=== PATIENT | female | born 2000 | race Caucasian/White ===

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

== ENCOUNTER 2018-03-09 23:51 | Emergency (ER) | payer OTHER ==
--- NOTE | 2018-03-10 00:12 | ER Report ---
History and Physical Time Seen By MD: 00:10 Hx. of Stated Complaint: PT WAS CITED FOR HAVING WEED IN THE DORMS THIS AFTERNOON. THE [employer]ED [employer] OPERATOR SEARCHED THE DORMS AND ALSO FOUND PRESCRITION XANX. THE XANAX WAS HER MOTHERS THAT SHE GAVE TO THE PT TO HELP WITH ANXIETY/ PANIC ATTACKS. THE PT STATES SHE IS ON PAXIL BUT THAT DOESNT ALWAYS DO THE TRICK SO THE XANAX IS USED A BACK UP. PT IS TEARFUL BECAUSE THE LIQUEFIED NAT[employer] OPERATOR STATED THAT THE MOTHER COULD BE CHARGED WITH A FELONY. PT STATES SHE DOESNT KNOW HOW SHE IS ING TO LIVE WITH THE DEREK AND DEANGELO. PT CUT BILATERAL THIGHS WITH RAZOR BLADE AFTER THIS HAPPENED. HPI/ROS CHIEF COMPLAINT: Suicidal ideation HISTORY OF PRESENT ILLNESS: This is a 18-year-old female. She is here tonight because she had several unfortunate incident happened. She smokes marijuana and was caught with this in the dorms. On investigating her room, please found a pill bottle with Xanax that is prescribed for her mother that she uses as a backup plan for her anxiety. She is on Paxil. The police had informed her that they would be talking to her mother and that it may result in a felony against her mother for giving her daughter a controlled substance in this manner. The patient is hopeless and feels like her life is ruined. She has been having thoughts of suicide but no definite plan but states she is more likely than not to commit suicide tonight if she leaves the hospital. She has never committed suicide or had suicidal ideation before. She does have anxiety and does take Paxil. She also has polycystic ovarian syndrome and is on [place], metformin, and spironolactone for this. She also has hypothyroidism and takes levothyroxine and has had her thyroid levels checked within the last year. Allergies: Coded Allergies: No Known Drug Allergies (Unverified , 03/10/18) Home Meds Reported Medications Thyroid,Pork (NATURE-THROID) 65 Mg Tablet, 65 MG PO BID 03/10/18 Paroxetine Hcl (PAXIL) 20 Mg Tablet, 30 MG PO QDAY, TAB 03/10/18 Spironolactone (SPIRONOLACTONE) 25 Mg Tablet, 100 MG PO BID, TAB 03/10/18 Metformin Hcl (METFORMIN HCL) 500 Mg Tablet, 2 TAB PO BID, TAB 03/10/18 Discontinued Reported Medications Levothyroxine Sodium (SYNTHROID) 25 Mcg Tablet, 25 MCG PO QDAY 03/10/18 Reviewed Nurses Notes: Yes Constitutional Vital Sign - Last 24 Hours 03/10/18 03/10/18 03/10/18 03/10/18 00:04 00:06 00:21 00:51 Temp 98.5 Pulse 69 67 Resp 16 B/P (MAP) 123/80 123/80 (94) Pulse Ox 93 92 94 O2 Delivery Room Air 03/10/18 03/10/18 00:56 01:00 Pulse 69 B/P (MAP) 121/77 (92) Pulse Ox 84 Physical Exam General Appearance: The patient is alert, has no immediate need for airway protection and no current signs of toxicity. Eyes: Pupils equal and round, she does have some mild scleral injection and is tearful. ENT: Normal oral mucosa. Moist mucous membranes Neck: Neck is supple and non tender. Respiratory: Chest is non tender, lungs are clear to auscultation. Cardiac: regular rate and rhythm Gastrointestinal: Abdomen is soft and non tender, no masses, bowel sounds normal. Musculoskeletal: Extremities have full range of motion. Neuro: Alert and oriented 3, no focal deficits. Skin: No rashes or lesions. DIFFERENTIAL DIAGNOSIS: After history and physical exam differential diagnosis was considered for a patient with hopelessness, acute adjustment reaction tonight, history of anxiety, and marijuana use a presents with suicidal ideation. Based on her risks at this time, I recommended to her that she stay, and if she was unwilling to stay we would need to begin the process of involuntary intermediate. Medical Decision Making Data Points Result Diagram: 03/10/18 0034 03/10/18 0034 Laboratory Hematology Test 03/10/18 00:00 03/10/18 00:34 Urine Color Yellow Urine Clarity Slightly-cloudy Urine pH 5.0 pH (4.8-9.5) Urine Specific [place] 1.023 Urine Protein Negative mg/dL (NEGATIVE) Urine Glucose (UA) Negative mg/dL (NEGATIVE) Urine Ketones Negative mg/dL (NEGATIVE) Urine Blood Moderate (NEGATIVE) Urine Nitrite Negative (NEGATIVE) Urine Bilirubin Negative (NEGATIVE) Urine Urobilinogen Negative mg/dL (0.2-1.9) Urine Leukocyte Esterase Negative (NEGATIVE) Urine RBC 1 /HPF (0-2/HPF) Urine WBC 2 /HPF (0-5/HPF) Urine Squamous Epithelial Cells Moderate /LPF (</=FEW) Urine Bacteria Few /HPF (NONE-FEW) Urine Mucus Few /HPF (NONE-FEW) Urine HCG, Qualitative Negative (NEGATIVE) Urine Opiates Screen Negative Urine Barbiturates Screen Negative Ur Tricyclic Antidepressants Screen Negative Urine Phencyclidine Screen Negative Urine Amphetamines Screen Negative Urine Benzodiazepines Screen Negative Urine Cocaine Screen Negative Urine Cannabinoids Screen Positive Red Blood Count 4.59 M/uL (4.17-5.56) Mean Corpuscular Volume 91.8 fL (80.0-96.0) Mean Corpuscular Hemoglobin 33.2 pg (26.0-33.0) Mean Corpuscular Hemoglobin Concent 36.2 g/dL (32.0-36.0) Red Cell Distribution Width 12.2 % (11.5-14.5) Mean Platelet Volume 7.7 fL (7.2-11.1) Neutrophils (%) (Auto) 66.3 % (39.4-72.5) Lymphocytes (%) (Auto) 25.0 % (17.6-49.6) Monocytes (%) (Auto) 7.0 % (4.1-12.4) Eosinophils (%) (Auto) 1.1 % (0.4-6.7) Basophils (%) (Auto) 0.6 % (0.3-1.4) Nucleated RBC Relative Count (auto) 0.0 /100WBC Neutrophils # (Auto) 6.0 K/uL (2.0-7.4) Lymphocytes # (Auto) 2.3 K/uL (1.3-3.6) Monocytes # (Auto) 0.6 K/uL (0.3-1.0) Eosinophils # (Auto) 0.1 K/uL (0.0-0.5) Basophils # (Auto) 0.1 K/uL (0.0-0.1) Nucleated RBC Absolute Count (auto) 0.00 K/uL Sodium Level 138 mmol/L (137-145) Potassium Level 4.2 mmol/L (3.5-5.0) Chloride Level 102 mmol/L (98-107) Carbon Dioxide Level 23 mmol/L (22-31) Blood Urea Nitrogen 16 mg/dl (7-18) Creatinine 0.70 mg/dl (0.52-1.04) Glomerular Filtration Rate Calc > 60.0 Random Glucose 99 mg/dl (75-110) Calcium Level 9.9 mg/dl (8.4-10.2) Magnesium Level 2.1 mg/dl (1.7-2.2) Total Bilirubin 0.3 mg/dl (0.2-1.3) Aspartate Amino Transf (AST/SGOT) 21 U/L (0-35) Alanine Aminotransferase (ALT/SGPT) 25 U/L (0-56) Alkaline Phosphatase 55 U/L (0-126) Total Protein 7.4 g/dl (6.3-8.2) Albumin 4.3 g/dl (3.5-5.0) Salicylates Level < 10 mg/L Salicylate Last Dose Date unk Acetaminophen Level < 10 ug/ml Serum Alcohol < 10 mg/dl Chemistry Test 03/10/18 00:00 03/10/18 00:34 Urine Color Yellow Urine Clarity Slightly-cloudy Urine pH 5.0 pH (4.8-9.5) Urine Specific [place] 1.023 Urine Protein Negative mg/dL (NEGATIVE) Urine Glucose (UA) Negative mg/dL (NEGATIVE) Urine Ketones Negative mg/dL (NEGATIVE) Urine Blood Moderate (NEGATIVE) Urine Nitrite Negative (NEGATIVE) Urine Bilirubin Negative (NEGATIVE) Urine Urobilinogen Negative mg/dL (0.2-1.9) Urine Leukocyte Esterase Negative (NEGATIVE) Urine RBC 1 /HPF (0-2/HPF) Urine WBC 2 /HPF (0-5/HPF) Urine Squamous Epithelial Cells Moderate /LPF (</=FEW) Urine Bacteria Few /HPF (NONE-FEW) Urine Mucus Few /HPF (NONE-FEW) Urine HCG, Qualitative Negative (NEGATIVE) Urine Opiates Screen Negative Urine Barbiturates Screen Negative Ur Tricyclic Antidepressants Screen Negative Urine Phencyclidine Screen Negative Urine Amphetamines Screen Negative Urine Benzodiazepines Screen Negative Urine Cocaine Screen Negative Urine Cannabinoids Screen Positive White Blood Count 9.1 k/uL (4.5-11.0) Red Blood Count 4.59 M/uL (4.17-5.56) Hemoglobin 15.3 g/dL (12.0-16.0) Hematocrit 42.2 % (34.0-47.0) Mean Corpuscular Volume 91.8 fL (80.0-96.0) Mean Corpuscular Hemoglobin 33.2 pg (26.0-33.0) Mean Corpuscular Hemoglobin Concent 36.2 g/dL (32.0-36.0) Red Cell Distribution Width 12.2 % (11.5-14.5) Platelet Count 405 K/uL (150-450) Mean Platelet Volume 7.7 fL (7.2-11.1) Neutrophils (%) (Auto) 66.3 % (39.4-72.5) Lymphocytes (%) (Auto) 25.0 % (17.6-49.6) Monocytes (%) (Auto) 7.0 % (4.1-12.4) Eosinophils (%) (Auto) 1.1 % (0.4-6.7) Basophils (%) (Auto) 0.6 % (0.3-1.4) Nucleated RBC Relative Count (auto) 0.0 /100WBC Neutrophils # (Auto) 6.0 K/uL (2.0-7.4) Lymphocytes # (Auto) 2.3 K/uL (1.3-3.6) Monocytes # (Auto) 0.6 K/uL (0.3-1.0) Eosinophils # (Auto) 0.1 K/uL (0.0-0.5) Basophils # (Auto) 0.1 K/uL (0.0-0.1) Nucleated RBC Absolute Count (auto) 0.00 K/uL Glomerular Filtration Rate Calc > 60.0 Calcium Level 9.9 mg/dl (8.4-10.2) Magnesium Level 2.1 mg/dl (1.7-2.2) Total Bilirubin 0.3 mg/dl (0.2-1.3) Aspartate Amino Transf (AST/SGOT) 21 U/L (0-35) Alanine Aminotransferase (ALT/SGPT) 25 U/L (0-56) Alkaline Phosphatase 55 U/L (0-126) Total Protein 7.4 g/dl (6.3-8.2) Albumin 4.3 g/dl (3.5-5.0) Salicylates Level < 10 mg/L Salicylate Last Dose Date unk Acetaminophen Level < 10 ug/ml Serum Alcohol < 10 mg/dl Toxicology Test 03/10/18 00:00 03/10/18 00:34 Urine Opiates Screen Negative Urine Barbiturates Screen Negative Ur Tricyclic Antidepressants Screen Negative Urine Phencyclidine Screen Negative Urine Amphetamines Screen Negative Urine Benzodiazepines Screen Negative Urine Cocaine Screen Negative Urine Cannabinoids Screen Positive Salicylates Level < 10 mg/L Salicylate Last Dose Date unk Acetaminophen Level < 10 ug/ml Serum Alcohol < 10 mg/dl Urinalysis Test 03/10/18 00:00 Urine Color Yellow Urine Clarity Slightly-cloudy Urine pH 5.0 pH (4.8-9.5) Urine Specific [place] 1.023 Urine Protein Negative mg/dL (NEGATIVE) Urine Glucose (UA) Negative mg/dL (NEGATIVE) Urine Ketones Negative mg/dL (NEGATIVE) Urine Blood Moderate (NEGATIVE) Urine Nitrite Negative (NEGATIVE) Urine Bilirubin Negative (NEGATIVE) Urine Urobilinogen Negative mg/dL (0.2-1.9) Urine Leukocyte Esterase Negative (NEGATIVE) Urine RBC 1 /HPF (0-2/HPF) Urine WBC 2 /HPF (0-5/HPF) Urine Squamous Epithelial Cells Moderate /LPF (</=FEW) Urine Bacteria Few /HPF (NONE-FEW) Urine Mucus Few /HPF (NONE-FEW) Urine HCG, Qualitative Negative (NEGATIVE) ED Course/Re-evaluation ED Course The patient is okay with standing. Labs show a positive cannabinoids but negative otherwise. I called and spoke with Dr. Irving and she will be admitted to [facility] voluntarily tonight. Decision to Disposition Date: Mar 10, 2018 Decision to Disposition Time: 01:21 Depart Departure Latest Vital Signs Vital Signs Date Time Temp Pulse Resp B/P (MAP) Pulse Ox O2 Delivery O2 Flow Rate FiO2 03/10/18 01:00 121/77 (92) 03/10/18 00:56 69 84 03/10/18 00:04 98.5 16 Room Air Impression: Primary Impression: Suicidal ideation Condition: Condition Unchanged Disposition: XFER TO [facility] MARION PRESLEY MD Mar 10, 2018 00:12
[2018-03-10] MEDS ORDERED: METF-450 PO (00:16)
[2018-03-10] MEDS ORDERED: LEVO25TA57 PO (00:16)
[2018-03-10] MEDS ORDERED: SPIR25TA80 PO (00:16)
[2018-03-10] MEDS ORDERED: PARO-243 PO (00:17)
[2018-03-10] MEDS ORDERED: THYR65TA14 PO (00:20)
[2018-03-10 00:40] LABS: PLATELET COUNT, AUTOMATED 405 K/uL (150-450)
[2018-03-10 01:00] VITALS: BP 121/77
[2018-03-10] MEDS ORDERED: METXR500 PO (12:38)
== END 2018-03-10 02:07 ==
LOC: ER 23:57
DX: R45.851 Suicidal ideations (principal); F12.90 Cannabis use, unspecified, uncomplicated; E03.9 Hypothyroidism, unspecified; F41.9 Anxiety disorder, unspecified
CPT/HCPCS: 36415; 80305; 80320; 80329; 81001; 81025; 82040; 82247; 82310; 82374; 82435; 82565; 82947; 83735; 84075; 84132; 84155; 84295; 84443; 84450; 84460; 84520; 85025; 99284

== ENCOUNTER 2018-03-10 01:25 | Inpatient (IN) | payer OTHER ==
[~2018-03-10] VITALS: Ht 157.5 cm; Wt 95.3 kg
[~2018-03-10 01:25] MED LIST: LEVO25TA57 PO; METF-450 PO; PARO-243 PO; SPIR25TA80 PO; THYR65TA14 PO
[2018-03-10] MEDS ORDERED: ACETAMINOPHEN 325 MG TAB PO PRN (02:25)
[2018-03-10] MEDS ORDERED: MAG HYD/AL HYD/SIMETH 30ML UDC PO PRN (02:25)
[2018-03-10] MEDS ORDERED: LORazepam 1 MG TAB PO ONE (02:25)
[2018-03-10 03:12] VITALS: BP 126/77
[2018-03-10] MEDS: MULTIVITAMINS TAB PO SCH (08:41)
[2018-03-10 10:28] VITALS: BP 123/82
[2018-03-10] MEDS ORDERED: METXR500 PO (12:38)
[2018-03-10] MEDS: PARoxetine HCL 20 MG TAB PO SCH (12:48)
[2018-03-10] MEDS: metFORMIN HCL XR 500 MG TABCR PO SCH ×2 (12:48→21:55)
[2018-03-10] MEDS: THYROID 60 MG TAB PO SCH (12:48)
[2018-03-10] MEDS: SPIRONOLACTONE 25 MG TAB PO SCH (14:00)
[2018-03-11] MEDS: THYROID 60 MG TAB PO SCH (05:54)
[2018-03-11 06:04] VITALS: BP 110/65
[2018-03-11] MEDS: PARoxetine HCL 20 MG TAB PO SCH (08:19)
[2018-03-11] MEDS: SPIRONOLACTONE 25 MG TAB PO SCH ×2 (08:19→14:07)
[2018-03-11] MEDS: metFORMIN HCL XR 500 MG TABCR PO SCH ×2 (08:19→21:10)
[2018-03-11] MEDS: MULTIVITAMINS TAB PO SCH (08:19)
--- NOTE | 2018-03-11 10:21 | SCHAAF H&P ---
DATE OF ADMISSION: March 10, 2018 ATTENDING PHYSICIAN Heath Irving MD Patient was seen at approximately 0900 hours on the morning of March 10, 2018 for note concerning this dictation. PRESENTING PROBLEM, CHIEF COMPLAINT Suicidal ideation. HISTORY OF PRESENT ILLNESS This is pleasant, depressed appearing 18-year-old female who was admitted on a voluntary basis. 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 Apparently, cannabis smoke was smelled emanating from her room. [place] police were summoned. They checked her room. They found the marijuana as well as prescription of Xanax that apparently her mother had given her to bring to school and use. It was indicated to the patient that her mother may be in trouble as well as herself for having marijuana in her room. Her mood quickly decompensated to the point that patient was feeling like ending her life. Patient reported during initial interview of the Unit that she remained suicidal at this point. She is very afraid to talk to her parents, who live [place], [place]. When asked about depressive symptoms, patient reports her appetite has been okay with no recent changes. She had been doing relatively okay prior to this event. Patient reports she has much remorse and that she feels bad that she has ruined not only her life but her mother's life as well. Patient denies any changes in energy or concentration. She denies any changes in interest or activities recently. She does report her sleep has been somewhat variable even prior to this event. Patient reports ongoing suicidal thoughts at time of admission with extremely low mood related to this stressor. Other than the specific stressors mentioned above, patient reports she has been somewhat stressed due to school work itself and financially stressed. Patient also reports the previous week her dog had on her 18th birthday. Patient denies a history of arleth, psychosis, panic attacks, PTSD. Patient reports some self harming in the form of superficial cutting that has taken place since she was around 15. She engages in this one to two times a year when situationally under stress. Patient engaged in some of this behavior during this admission as well. MENTAL HEALTH HISTORY The patient has never been an inpatient on the psychiatric [facility] before. She does not have a current therapist now. She continues to receive medications from a physician in [place]. She currently is on Paxil 30 mg. She is also being treated for polycystic ovarian syndrome. Patient has no history of suicide attempt. FAMILY PSYCHIATRIC HISTORY The patient reports anxiety/depression on multiple members on both sides of her family. Patient reports a very remote history of family suicide. She is unsure who the relative was and denies any alcohol or drug abuse in the family. PAST MEDICAL HISTORY Significant for polycystic ovaries. The patient has hypothyroidism. She remains on Metformin, Spironolactone, replacement thyroid meds and control. She has no recent medication changes and no allergies. SOCIAL HISTORY The patient was born in [place] and raised in [place], [place] after the first year of her life. Parents were at the time of her . They still are. They live in the [facility]. She has no siblings. She graduated high school with a good GPA in the 3's. 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 She has never and has no children. She considers herself heterosexual and has no current relationship with a boyfriend. She denies any history of physical, emotional or sexual abuse growing up and reports good childhood overall. LEGAL HISTORY Patient denies any legal history prior to the events concerning admission. SUBSTANCE ABUSE HISTORY Patient reports she has been using cannabis up to five times a week recently. She denies any other experimentation. She has used minimal alcohol only. PHYSICAL EXAMINATION Please see emergency room note. Notable for cooperative and polite 18-year-old female. No acute medical distress. Vital signs at the time of admission: Temperature 98.5, pulse 69, respiratory rate 16, blood pressure 123/80 and pulse oximetry 93% on room air. LABORATORY DATA MCH elevated at 33.2. MCHC elevated at 36.2. Otherwise unremarkable. CBC and CMP unremarkable. TSH 1.14. Urinalysis unremarkable as well. screen negative. Toxicology screen positive for cannabis, negative for other substances of abuse with a nondetectable serum alcohol level. MENTAL STATUS EXAMINATION GENERAL APPEARANCE, BEHAVIOR AND ATTITUDE: This is a polite, cooperative, depressed-appearing 18-year-old female. She is very tearful during initial interview. Psychomotor retardation evident. Patient making fair to good eye contact. SPEECH: Within normal limits. Regular rate, rhythm, volume and tone. MOOD: Described as depressed. AFFECT: Constricted and mood-congruent. THOUGHT PROCESSES: No loose associations or flight of ideas. THOUGHT CONTENT: Free of auditory or visual hallucinations, ideas of reference, thought broadcastings, delusions, obsessions or compulsions. Patient admitting to ongoing suicidal thoughts with nonspecific plans relating to recent stressors. Denies homicidal ideation. SENSORIUM: Clear. COGNITION: Alert and oriented to person, place, time and partially to situation. MEMORY: Immediate, recent and remote estimated intact. INTELLIGENCE: Average, based on interview. INSIGHT AND JUDGMENT: Considered currently impaired secondary to level of acute stressor. ASSESSMENT This is a 18-year-old female who was recently caught with cannabis and apparently caught with a prescription of her mother's Xanax as well. Patient feeling very remorseful about this. Patient's mood quickly plummeted. At this time, we will get patient in contact with her parents to try to reconcile the situation so patient is well enough to return home to school. DIAGNOSES 1. Adjustment disorder with anxious and depressed mood. 2. Cannabis use disorder, rule out cannabis related disorder. 3. Polycystic ovarian syndrome. 4. Rule out mood disorder secondary to general medical condition. Patient having supportive family overall. PLAN 1. Admit to the Unit. 2. Necessary precautions will be implemented. 3. The patient will participate in individual and group therapy. 4. Medications will be adjusted and titrated accordingly. 5. Collateral information to be obtained. 6. Estimated length of stay three to five days. MTDD
--- NOTE | 2018-03-11 13:13 | BHS Progress Note ---
[facility] - Subjective Progress Notes Subjective Patient very cooperative today, and able to logically explore her relationship with her parents, and their reaction to her current predicament concerning cannabis use. Patient more tolerant of stressors today, will keep medications the same, and will have treatment team meeting in the AM, with her parents. Mood improving and appetite and sleep are intact. Suicidal Ideation: Resolving Homicidal Ideation: None [facility] - Objective Physical Exam Vital Signs Vital Signs Date Time Temp Pulse Resp B/P (MAP) Pulse Ox O2 Delivery O2 Flow Rate FiO2 03/11/18 06:04 97.6 72 15 110/65 (80) 94 Room Air Muscle Strength and Tone: WNL Gait and Station: Steady [facility] Medications Reviewed: Side Effects, Benefits of Medication, Risks Allergies Reviewed: Yes Mental Status Exam General Appearance: Casual, Well Groomed, Good Eye Contact, Cooperative, Polite, Good Interaction; No Tearful, No Psychomotor Agitation, No Psychomotor Retardation, No Bizarre Mannerisms, No Tics Speech: Clear, Spontaneous, Normal Rate, Normal Rhythm, Normal Volume, Normal Tone Mood: Dysthmic/Depressed (improving) Affect: Calm, Neutral; No Tearful, No Anxious, No Agitated Thought Process: Organized, Logical, Goal Directed; No Loose Associations, No Flight of Ideas Thought Content: Suicidal Ideation (resolving); No Homicidal Ideation, No Delusions, No Auditory Halllucinations, No Visual Hallucinations, No Thought Broadcasting, No Ideas of Reference, No Obsessions, No Compulsions Sensorium: Clear Cognition: Alert & Oriented-Person, Alert & Oriented-Place, Alert & Oriented- Time, [id number] Memory: Immediate, Recent, Remote Intelligence: Average Insight Judgment: Fair (improving) [facility] Assessment and Plan [id number] Encounter Date: Mar 11, 2018 Lroo-[id number] Encounter Time: 11:00 [facility] Plan: Necessary Precautions, Individual/Group Therapy, Admin/Titrate Meds, Educate Patient Tobacco Medications: Not Appropriate Condition Multpiple Antipsychotics Used: No Problems: (1) Cannabis use disorder, severe, in controlled environment (2) Adjustment disorder with mixed anxiety and depressed mood Condition 1. continue treatment. 2. family meeting tomorrow, with likely discharge. DEL ROSAS MD Mar 11, 2018 13:13
[2018-03-11 14:01] VITALS: BP 112/71
[2018-03-11 22:33] VITALS: BP 120/69
[2018-03-12] MEDS: THYROID 60 MG TAB PO SCH (06:01)
[2018-03-12 06:09] VITALS: BP 109/57
[2018-03-12] MEDS: SPIRONOLACTONE 25 MG TAB PO SCH ×2 (08:20→14:01)
[2018-03-12] MEDS: metFORMIN HCL XR 500 MG TABCR PO SCH (08:20)
[2018-03-12] MEDS: PARoxetine HCL 20 MG TAB PO SCH (08:21)
[2018-03-12] MEDS: MULTIVITAMINS TAB PO SCH (08:21)
[2018-03-12] MEDS ORDERED: MULT-1379 PO (12:31)
[2018-03-12 13:05] VITALS: BP 122/78
--- NOTE | 2018-03-13 07:20 | SCHAAF DISCHARGE ---
DATE OF ADMISSION: March 10, 2018 DATE OF DISCHARGE: March 12, 2018 ATTENDING PHYSICIAN Heath Irving MD The patient was seen at approximately 11:00 hours on March 12, 2018 for note concerning this dictation. FINAL DIAGNOSES 1. Adjustment disorder with anxious and depressed mood. 2. Cannabis use disorder, moderate. 3. Rule out parent child relational problem. REASON FOR ADMISSION This is a very pleasant, cooperative 18-year-old female who was initially admitted to the Behavioral Health Unit on a voluntary basis after an acute stressor in which patient was caught using marijuana in her dorm room. During this Police apparently not only found cannabis with this patient but also a script of Xanax that the patient had obtained from her mother. The patient's mother apparently had given her Xanax to take to the college with her. The patient herself reported infrequent use of her mother's Xanax and the patient stating she does not sell them or trade them for cannabis. The patient did admit to ongoing use of cannabis, then patient also stating she is taking her outpatient medications, some of which were polycystic ovary and depression and anxiety as prescribed. Please see History and Physical for full details regarding the admission. The patient overall cooperative, taking an active role in her treatment on the unit. The patient communicating with her father and her mother who live out of town as well. The patient having somewhat negative interactions with her mother on the phone. The patient's mother angry with staff at this hospital in regards to overall limitations on what this hospital could do, especially concerning finding this patient's marijuana supplier. The patient's mother seems not to understand the full seriousness of giving her daughter controlled substance while simultaneously demanding that we pursue finding the source of the patient's marijuana. The patient overall tolerant of interactions with mother and father stating she is used to their parenting style overall. The patient reporting that her parents are threatening to remove from her any help that she has been given with finances, etc. due to continued lying about marijuana to them, but overall again, the patient accepting of her parents coming to [place] to be with her later during the weekend and to attend a meeting with the woven paper hat mender on Thursday. The patient's mood continued to improve. At time of discharge, no parasuicidal behaviors were seen. No aggressive behaviors were seen. The patient not tearful and interacting well. PHYSICAL EXAMINATION Please see emergency room note. Notable for a depressed appearing 18-year-old female, overwhelmed with current stressors and being caught in her dorm room with marijuana and her mother's Xanax. No acute physical distress. Vital signs at the time of admission: Temperature 98.5, pulse 69, respiratory rate 16, blood pressure 123/80 and pulse oximetry 93% on room air. Vital signs at the time of discharge from [facility]: Temperature 99.2, pulse 83, respiratory rate 16, blood pressure 122/78 and pulse oximetry 95% on room air. LABORATORY DATA CBC notable for MCH elevated at 33.2, MCHC elevated at 36.2. Chemistry panel unremarkable. TSH 1.14. Urinalysis unremarkable with a negative screen and Toxicology screen positive for cannabis and negative for other substances of abuse with nondetectable serum alcohol level. MENTAL STATUS EXAMINATION GENERAL APPEARANCE, BEHAVIOR AND ATTITUDE: At time of discharge this is polite, cooperative 18-year-old female calm, no periods of tearfulness, able to interact well with her parents via phone overall. The patient tolerant of likely consequences that parents will initiate secondary to her cannabis use. No psychomotor agitation, retardation. No bizarre mannerisms or tics. SPEECH: Within normal limits. Regular rate, rhythm, volume and tone. MOOD: Described as improved. AFFECT: Neutral to full at times. Overall mood-congruent. THOUGHT PROCESSES: Logical and goal-directed, no loose associations or flight of ideas. THOUGHT CONTENT: Free of auditory or visual hallucinations, ideas of reference, thought broadcastings, delusions, obsessions or compulsions. The patient is adamantly denying suicidal or homicidal ideation. SENSORIUM: Clear. COGNITION: Alert and oriented to person, place, time and situation. MEMORY: Immediate, recent and remote was estimated intact. INTELLIGENCE: Average, based on interview. INSIGHT AND JUDGMENT: Considered grossly intact and appropriate for ongoing outpatient treatment in the absence of marijuana or substance use. RESULTS OF TESTING Imaging: None. Laboratory data: See above. Psychological testing: Not done. CONSULTATIONS None. TREATMENT Patient received medications, participated in individual and group therapy. HOSPITAL COURSE This is a cooperative 18-year-old female initially brought to the psychiatric unit after voicing thoughts of self-harm secondary to being fearful of parents retribution after being caught with marijuana and her mother's Xanax on the unit. The patient took an active role in her treatment. No medication changes were made. After contact with her parents were made stressors alleviated somewhat and suicidal ideation resolved. CONDITION OF PATIENT ON DISCHARGE Stable. Considered a minimal risk to herself or others in the absence of marijuana use. DISPOSITION The patient was discharged to home. She has follow up with outpatient medication and therapy as recommended. The patient would abstain from cannabis, take medications as prescribed. She was given the crisis line should symptoms return. The patient would continue: 1. Aldactone 100 mg b.i.d. 2. [place] Thyroid 130 mg q am. 3. Glucophage 1000 mg b.i.d. 4. Paxil 30 mg daily. 5. Multivitamin with Minerals daily. The patient would not use any Xanax. The risks, benefits and alternatives of the above discharge plan were discussed. Informed consent was given to proceed with the above discharge plan by this competent patient as well as patient's mother and father present on the phone. The patient again agreed to abstain from cannabis and given the crisis line should symptoms return. [facility]
== END 2018-03-12 17:00 | disposition home or self-care (01) | DRG 882 ==
LOC: BHS 01:25
PROVIDERS: ADMIT Psychiatry & Neurology Psychiatry; ATTEND Psychiatry & Neurology Psychiatry
DX: F43.23 Adjustment disorder with mixed anxiety and depressed mood (principal); R45.851 Suicidal ideations; F12.10 Cannabis abuse, uncomplicated; E28.2 Polycystic ovarian syndrome; E03.9 Hypothyroidism, unspecified; Z73.3 Stress, not elsewhere classified; Z55.8 Other problems related to education and literacy; Z59.8 Other problems related to housing and economic circumstances; Z62.820 Parent-biological child conflict